=== PATIENT | female | born 1965 | race Caucasian/White ===

== ENCOUNTER 2024-09-09 01:08 | Emergency (ER) | payer OTHER ==
[2024-09-09] MEDS ORDERED: KETOROLAC 30 MG/ML INJ ONE (02:07)
[2024-09-09] MEDS ORDERED: ONDANSETRON 4 MG/2 ML VIAL ONE (02:07)
[2024-09-09] MEDS ORDERED: MORPHINE 4 MG/ML SYR ONE ×2 (02:08→04:58)
[2024-09-09] MEDS ORDERED: DICYCLOMINE HCL 20 MG/2 ML AMP IM ONE (02:08)
[2024-09-09] MEDS ORDERED: FAMOTIDINE 20 MG/2 ML VIAL IV ONE (02:08)
[2024-09-09] MEDS ORDERED: NA CHLORIDE 0.9% 1,000 ML ONE (02:09)
[2024-09-09 02:16] LABS: Absolute Eosinophils 0.1 K/uL (0-0.5); Absolute Lymphocytes (CBC) 1.3 K/uL (0.7-4.9); Absolute Monocytes 0.7 K/uL (0.1-1.3); Absolute Neutrophil 10.6 K/uL (1.8-8.0); Basophils % 0.2 % (0-1.3); Eosinophils % 0.8 % (0-4.4); Hematocrit 42.4 % (36.0-45.0); Hemoglobin 14.7 g/dL (12.0-15.0); Lymphocytes % 10.1 % (15.3-44.8); MCH 29.9 pg (27.0-35.0); MCHC 34.7 g/dL (32.0-36.0); MCV 86.3 fL (80-100); MPV 9.8 fL (7.6-11.3); Monocytes % 5.4 % (3.3-12.3); Neutrophils % 83.5 % (41.7-73.7); Nucleated Red Blood Cells % 0.1 % (0-0); Platelets 165 thou/uL (152-406); RBC Red Blood Cell Count 4.92 M/uL (3.86-4.86); Red Cell Distribution Width 12.5 % (12.1-15.2)
[2024-09-09 02:27] LABS: Albumin/Globulin Ratio 1.1 (1.1-1.8); Bilirubin Total 0.6 mg/dL (0.2-1.0); Globulin 3.7 g/dL (2.3-3.5); Protein, Total 7.7 g/dL (6.4-8.2)
[2024-09-09 02:28] LABS: Specific Gravity 1.024 (1.005-1.030); Sqamous Epithelial None Seen /HPF (None Seen); Urine Bacteria None Seen /HPF (<20); Urine Bilirubin NEGATIVE (Negative); Urine Blood Trace (Negative); Urine Clarity Clear (Clear); Urine Color Light-Yellow (Yellow); Urine Crystals Unidentified Few /HPF (None Seen); Urine Culture Reflex Order NOT NEEDED; Urine Glucose NEGATIVE (Negative); Urine Ketones NEGATIVE (Negative); Urine Microscopic Reflex YN ORDER UMIC; Urine Mucus Slight /HPF (None Seen); Urine Nitrite NEGATIVE (Negative); Urine Protein NEGATIVE (Negative); Urine RBC <5 /HPF (None Seen); Urine Urobilinogen Normal (Normal); Urine WBC <5 /HPF (<5); Urine WBC Clump Rare /HPF (None Seen)
[2024-09-09] MEDS ORDERED: NACHLORIDE 0.45% 1,000 ML IV ONE (04:09)
--- NOTE | 2024-09-09 04:23 | RAD REPORT ---
EXAM DESCRIPTION: Abdomen Pelvis W Contrast CLINICAL HISTORY: ABD PAIN COMPARISON: None Available. TECHNIQUE: CT of the abdomen and pelvis performed following the administration of IV contrast. No ora l contrast. This exam was performed according to our departmental dose-optimization program, which includes automated exposure control, adjustment of the mA and/or kV according to patient size and/or use of iterative reconstruction technique. FINDINGS: Prominent artifact from left hip prosthesis obscures detail of adjacent structures. Lung Bases: No basilar consolidation. Abdomen: Liver: The liver has normal contour and density. No suspicious mass. Gallbladder: Surgically absent. Mild biliary dilatation may be due to postcholecystectomy state. Spleen, Pancreas, and Adrenal Glands: The spleen, pancreas, and adrenal glands are unremarkable. Kidneys: No suspicious mass. No urinary tract calculi. No hydronephrosis. Vasculature: The aorta and IVC have normal caliber and position. The portal vein is patent. The pro ximal visceral and renal arteries are patent. Stomach: Postsurgical changes related to prior gastric bypass. Other: No free intraperitoneal air. No free fluid or lymphadenopathy. Pelvis: Bladder: Partially obscured due to artifact. Visualized portion appears under distended, but otherw ise unremarkable. Bowel: Diffuse fluid-filled small bowel loops throughout the abdomen and pelvis. There is some dila ariadna fluid-filled small bowel loops proximally in the left abdomen without focal transition point. Colon is also moderately distended and fluid-filled from the level of the cecum to the splenic flexur e.. Moderate stool in the colon distally. Appendix: Not visualized. Pelvis: Partially obscured due to artifact from left hip prosthesis. No definite suspicious mass iden tified. Bones: No destructive bone lesions identified. Postsurgical changes related to left hip arthroplasty. IMPRESSION: 1. Diffuse fluid-filled small bowel loops throughout the abdomen and pelvis. There is some dilated fluid-filled small bowel loops proximally in the left abdomen without focal transition point to suggest obstruction. Colon is also moderately distended and fluid-filled from the level of the cecum to the splenic flexure. Findings could be due to enterocolitis. 2. Postsurgical changes related to prior gastric bypass. 3. Mild biliary dilatation may be due to postcholecystectomy state. Electronically signed by: Debbie Ballesteros MD 09/09/2024 04:[address] [facility] Due to temporary technical issues with the PACS/[employer] reporting system, reports are being benny d by the in-house radiologist without review as a courtesy to ensure prompt reporting the interpreting radiologist is fully responsible for the content of the report. Transcribed Date/Time: 09/09/2024 4:23 AM
[2024-09-09] MEDS ORDERED: DICYCLOMINE HCL 10 MG CAP ONE (04:57)
[2024-09-09] MEDS ORDERED: METOCLOPRAMIDE 10 MG/2mL INJ ONE (04:57)
--- NOTE | 2024-09-09 05:07 | ER ---
Nurse's Notes [facility] Angi Name: Kristi Musa Age: 58 yrs Sex: Female : 1965 Arrival Date: 09/09/2024 Time: :08 Bed 16 Private MD: Diagnosis: Acute Enterocolitis , Acute Viral Gastroenteritis Presentation: 09/09 01:30 Chief complaint: Patient states: NAUSEA, ABDOMINAL PAIN, BACK PAIN, AND BLADDER ha1 PRESSURE. :30 Coronavirus screen: Client denies travel out of the [place] in the last 14 days. Ebola ha1 Screen: No symptoms or risks identified at this time. Initial Sepsis Screen: Does the patient meet any 2 criteria? No. Patient's initial sepsis screen is negative. Does the patient have a suspected source of infection? No. Patient's initial sepsis screen is negative. Risk Assessment: Do you want to hurt yourself or someone else? Patient reports no desire to harm self or others. Onset of symptoms was September 09, 2024. : Method Of Arrival: Ambulatory ha1 :30 Acuity: MAC 3 ha1 Triage Assessment: General: Appears uncomfortable, Behavior is calm, cooperative. Pain: Complains of pain ha1 in back and abdomen Pain does not radiate. Pain currently is 8 out of 10 on a pain scale. Quality of pain is described as crampy, pressure. Neuro: Level of Consciousness is awake, alert, obeys commands, Oriented to person, place, time, situation. Cardiovascular: Capillary refill < 3 seconds. Respiratory: Airway is patent Respiratory effort is even, unlabored, Respiratory pattern is regular, symmetrical. GI: Abdomen is round non-distended, Reports lower abdominal pain, upper abdominal pain, nausea, vomiting. Musculoskeletal: Circulation, motion, and sensation intact. Range of motion: intact in all extremities. Historical: - Allergies: No Known Allergies; ha1 - PMHx: ATRIAL FLUTTER; ha1 - PSHx: STOMACH BYPASS; ha1 - Immunization history:: Adult Immunizations up to date, Client reports having NOT received the Covid vaccine. Flu vaccine is not up to date. - Infectious Disease History:: Denies. - Social history:: Smoking status: Patient denies any tobacco usage or history of. - Family history:: not pertinent. Screenin:06 [facility] ED Fall Risk Assessment (Adult) History of falling in the last 3 months, ha1 including since admission No falls in past 3 months (0 pts) Confusion or Disorientation No (0 pts) Intoxicated or Sedated No (0 pts) Impaired Gait No (0 pts) Mobility Assist Device Used No (0 pt) Altered Elimination No (0 pt) Score/Fall Risk Level 0 - 2 = Low Risk Oriented to surroundings, Maintained a safe environment, Educated pt \T\ family on fall prevention, incl call for assistance when getting out of bed, Hourly rounding (assess needs \T\ fall precautionary measures) done. Abuse screen: Denies threats or abuse. Denies injuries from another. Nutritional screening: No deficits noted. Tuberculosis screening: No symptoms or risk factors identified. Assessment: 01:45 General: Appears in no apparent distress. uncomfortable, Behavior is calm, cooperative, dd2 appropriate for age. Pain: Complains of pain in abdomen and back Pain does not radiate. Pain currently is 10 out of 10 on a pain scale. Quality of pain is described as aching, crampy. Neuro: No deficits noted. Lafleur Agitation-Sedation Scale (RASS): 0 - Alert and Calm. Cardiovascular: No deficits noted. Patient's skin is warm and dry. Respiratory: No deficits noted. Airway is patent Respiratory effort is even, unlabored, Respiratory pattern is regular, symmetrical. GI: Abdomen is non-distended, Bowel sounds present X 4 quads. Abdomen is tender to palpation in right lower quadrant and left lower quadrant Reports lower abdominal pain, upper abdominal pain, nausea, vomiting. : No deficits noted. No signs and/or symptoms were reported regarding the genitourinary system. EENT: No deficits noted. No signs and/or symptoms were reported regarding the EENT system. Derm: No deficits noted. No signs and/or symptoms reported regarding the dermatologic system. Musculoskeletal: No deficits noted. No signs and/or symptoms reported regarding the musculoskeletal system. Circulation, motion, and sensation intact. Range of motion: intact in all extremities. 04:00 Reassessment: Patient appears in no apparent distress at this time. Patient is alert, ay oriented x 3, equal unlabored respirations, skin warm/dry/pink. Vital Signs: 01:30 Weight 71.21 kg; Height 5 ft. 5 in. ; ha1 01:30 BP 145 / 63; Pulse 72; Resp 17 S; Temp 97.9(T); Pulse Ox 100% on R/A; ha1 04:00 BP 122 / 71; Pulse 60; Resp 16; Pulse Ox 100% on R/A; ay 01:30 Body Mass Index 26.13 (71.21 kg, 165.1 cm) ha1 Hays Coma Score: 01:45 Eye Response: spontaneous(4). Motor Response: obeys commands(6). Verbal Response: dd2 oriented(5). Total: 15. 06:08 Eye Response: spontaneous(4). Motor Response: obeys commands(6). Verbal Response: sp4 oriented(5). Total: 15. ED Course: 01:12 Patient arrived in ED. gm2 01:18 Cruz Gann MD is Attending Physician. sp4 01:45 No provider procedures requiring assistance completed. Patient maintains SpO2 dd2 saturation greater than 95% on room air. 01:45 Patient has correct armband on for positive identification. Bed in low position. Call dd2 light in reach. Side rails up X2. Client placed on continuous cardiac and pulse oximetry monitoring. NIBP monitoring applied. Door closed. Noise minimized. Warm blanket given. Pillow given. Verbal reassurance given. 01:50 Inserted saline lock: 20 gauge in left Blood collected. Flushed with 10 mL NS. ha1 01:55 CBC with Diff Sent. ha1 01:55 CMP Sent. ha1 01:55 Lipase Sent. ha1 02:01 Triage completed. ha1 02:02 MONY WORKMAN, RN is Primary Nurse. dd2 02:49 CT Abd/Pelvis - IV Contrast Only In Process Unspecified. EDMS 05:20 IV discontinued, intact, bleeding controlled, No redness/swelling at site. Pressure ha1 dressing applied. Administered Medications: 02:24 Drug: Famotidine IVP 20 mg IVP once; dilute with 10 mL 0.9% NaCl; give over 2 minutes dd2 Route: IVP; Site: left antecubital; 04:18 Follow up: Response: No adverse reaction ay 02:24 Drug: TORadol - Ketorolac IVP 30 mg IVP once Route: IVP; Site: left antecubital; dd2 04:19 Follow up: Response: No adverse reaction ay 02:24 Drug: Ondansetron IVP 8 mg IVP once; over 2 minutes Route: IVP; Site: left antecubital; dd2 04:19 Follow up: Response: No adverse reaction ay 02:24 Drug: morphine IVP or IV 4 mg IVP once over 4 mins Route: IVP; Infused Over: 4 mins; dd2 Site: left antecubital; 04:19 Follow up: Response: No adverse reaction ay 02:24 Drug: NS 0.9% IV 1000 ml IV at 1 bolus Per protocol; to be given as a bolus over 60 dd2 minutes Route: IV; Rate: 1 bolus; Site: left antecubital; 05:23 Follow up: IV Status: Completed infusion ha1 02:24 Drug: Dicyclomine IM 20 mg IM once Route: IM; Site: left deltoid; dd2 04:18 Follow up: Response: No adverse reaction ay 05:23 Follow up: Response: No adverse reaction ha1 04:17 Drug: NS IV 0.45 % 1000 ml IV at 125 ml/hr continuous Route: IV; Rate: 125 ml/hr; Site: ay left antecubital; 05:22 Follow up: IV Status: Completed infusion ha1 05:07 Drug: morphine IVP or IV 4 mg IVP once over 4 mins Route: IVP; Infused Over: 4 mins; bm8 Site: left antecubital; 05:22 Follow up: Response: No adverse reaction ha1 05:07 Drug: metoCLOPramide IVP 10 mg IVP once; over 1 to 2 minutes Route: IVP; Site: left bm8 antecubital; 05:22 Follow up: Response: No adverse reaction ha1 05:07 Drug: Dicyclomine PO 20 mg PO once Route: PO; bm8 05:21 Follow up: Response: No adverse reaction ha1 Medication: 01:45 VIS not applicable for this client. dd2 Outcome: 05:07 Discharge ordered by MD. bennett 05:20 Discharged to home ambulatory, ha1 05:20 Condition: stable 05:20 Discharge instructions given to patient, Instructed on discharge instructions, follow up and referral plans. medication usage, Demonstrated understanding of instructions, follow-up care, medications, Prescriptions given X 2, 05:23 Patient left the ED. ha1 Signatures: Dispatcher [employer] EDMS Harish Reynoldsidy, RN RN ha1 Cruz Gann MD MD sp4 Radhika Wayne gm2 Yoan Major RN RN bm8 MONY WORKMAN RN RN dd2 William Ibarra, RN RN ay
--- NOTE | 2024-09-09 05:08 | EDPHYS ---
Physician Documentation [facility] Angi Name: Kristi Musa Age: 58 yrs Sex: Female : 1965 Arrival Date: 09/09/2024 Time: 01:08 Bed 16 Private MD: ED Physician Cruz Gann HPI: 09/09 01:18 This 58 yrs old Female presents to ER via Unassigned with complaints of sp4 Abdominal Pain, Abdominal Cramping, Low Back Pain, Nausea/Vomiting. 06:08 Patient presents with acute onset of vomiting and lower abdominal crampy pain. Patient sp4 denied diarrhea. Patient has history of , cholecystectomy, Michael-en-Y gastric bypass. . Historical: - Allergies: : No Known Allergies; ha1 - PMHx: :31 ATRIAL FLUTTER; ha1 - PSHx: :31 STOMACH BYPASS; ha1 - Immunization history:: Adult Immunizations up to date, Client reports having NOT received the Covid vaccine. Flu vaccine is not up to date. - Infectious Disease History:: Denies. - Social history:: Smoking status: Patient denies any tobacco usage or history of. - Family history:: not pertinent. ROS: 06:08 Constitutional: Negative for fever, chills, and weight loss, positive vomiting, sp4 positive lower abdominal pain 06:08 All other systems are negative, Exam: 06:08 Constitutional: This is a well developed, well nourished patient who is awake, alert, sp4 and in no acute distress. Head/Face: Normocephalic, atraumatic. Eyes: Pupils equal round and reactive to light, extra-ocular motions intact. Lids and lashes normal. Conjunctiva and sclera are not injected. Cornea within normal limits. Periorbital areas with no swelling, redness, or edema. ENT: Nares patent. No nasal discharge, no septal abnormalities noted. Tympanic membranes are normal and external auditory canals are clear. Oropharynx with no redness, swelling, or masses, exudates, or evidence of obstruction, uvula midline. Mucous membranes moist. Neck: Trachea midline, no thyromegaly or masses palpated, and no cervical lymphadenopathy. Supple, full range of motion without nuchal rigidity, or vertebral point tenderness. Chest/axilla: Normal chest wall appearance and motion. Nontender with no deformity. No lesions are appreciated. Cardiovascular: Regular rate and rhythm with a normal S1 and S2. No gallops, murmurs, or rubs. Normal PMI, no JVD. No pulse deficits. Respiratory: Lungs have equal breath sounds bilaterally, clear to auscultation and percussion. No rales, rhonchi or wheezes noted. No increased work of breathing, no retractions or nasal flaring. Abdomen/GI: Soft, with normal bowel sounds. No distension or tympany. No guarding or rebound. No evidence of tenderness throughout. Back: No spinal tenderness. No costovertebral tenderness. Skin: Warm, dry with normal turgor. Normal color with no rashes, no lesions, and no evidence of cellulitis. MS/ Extremity: Pulses equal, no cyanosis. Neurovascular intact. Full, normal range of motion. Neuro: Awake and alert, GCS 15, oriented to person, place, time, and situation. Cranial nerves II-XII grossly intact. Motor strength 5/5 in all extremities. Sensory grossly intact. Psych: Awake, alert, with orientation to person, place and time. Behavior, mood, and affect are within normal limits Vital Signs: 01:30 Weight 71.21 kg; Height 5 ft. 5 in. ; ha1 01:30 BP 145 / 63; Pulse 72; Resp 17 S; Temp 97.9(T); Pulse Ox 100% on R/A; ha1 04:00 BP 122 / 71; Pulse 60; Resp 16; Pulse Ox 100% on R/A; ay 01:30 Body Mass Index 26.13 (71.21 kg, 165.1 cm) ha1 Brynn Coma Score: 01:45 Eye Response: spontaneous(4). Motor Response: obeys commands(6). Verbal Response: dd2 oriented(5). Total: 15. 06:08 Eye Response: spontaneous(4). Motor Response: obeys commands(6). Verbal Response: sp4 oriented(5). Total: 15. MDM: 01:43 Medical Screening Exam initiated sp4 06:08 Differential diagnosis: Assessment consistent with acute gastroenteritis and sp4 enterocolitis. Advise clear liquid diet for 2 days. Symptomatic medications as well. Data reviewed: vital signs, nurses notes, lab test result(s), radiologic studies, CT scan. Consideration of Admission/Observation Escalation of care including admission/observation considered. ED course: Pain has improved. Patient stable for discharge home.. 09/09 01:44 Order name: CBC with Diff; Complete Time: 04:53 sp4 09/09 01:44 Order name: CMP; Complete Time: 04:53 sp4 09/09 01:44 Order name: Lipase; Complete Time: 04:53 sp4 09/09 01:44 Order name: Urinalysis w/ reflexes; Complete Time: 04:53 sp4 09/09 01:44 Order name: CT Abd/Pelvis - IV Contrast Only sp4 09/09 01:44 Order name: IV Saline Lock; Complete Time: 01:55 sp4 09/09 01:44 Order name: Labs collected and sent; Complete Time: 01:55 sp4 09/09 01:46 Order name: NPO; Complete Time: 02:02 sp4 Administered Medications: 02:24 Drug: Famotidine IVP 20 mg IVP once; dilute with 10 mL 0.9% NaCl; give over 2 minutes dd2 Route: IVP; Site: left antecubital; 04:18 Follow up: Response: No adverse reaction ay 02:24 Drug: TORadol - Ketorolac IVP 30 mg IVP once Route: IVP; Site: left antecubital; dd2 04:19 Follow up: Response: No adverse reaction ay 02:24 Drug: Ondansetron IVP 8 mg IVP once; over 2 minutes Route: IVP; Site: left antecubital; dd2 04:19 Follow up: Response: No adverse reaction ay 02:24 Drug: morphine IVP or IV 4 mg IVP once over 4 mins Route: IVP; Infused Over: 4 mins; dd2 Site: left antecubital; 04:19 Follow up: Response: No adverse reaction ay 02:24 Drug: NS 0.9% IV 1000 ml IV at 1 bolus Per protocol; to be given as a bolus over 60 dd2 minutes Route: IV; Rate: 1 bolus; Site: left antecubital; 05:23 Follow up: IV Status: Completed infusion ha1 02:24 Drug: Dicyclomine IM 20 mg IM once Route: IM; Site: left deltoid; dd2 04:18 Follow up: Response: No adverse reaction ay 05:23 Follow up: Response: No adverse reaction ha1 04:17 Drug: NS IV 0.45 % 1000 ml IV at 125 ml/hr continuous Route: IV; Rate: 125 ml/hr; Site: ay left antecubital; 05:22 Follow up: IV Status: Completed infusion ha1 05:07 Drug: morphine IVP or IV 4 mg IVP once over 4 mins Route: IVP; Infused Over: 4 mins; bm8 Site: left antecubital; 05:22 Follow up: Response: No adverse reaction ha1 05:07 Drug: metoCLOPramide IVP 10 mg IVP once; over 1 to 2 minutes Route: IVP; Site: left bm8 antecubital; 05:22 Follow up: Response: No adverse reaction ha1 05:07 Drug: Dicyclomine PO 20 mg PO once Route: PO; bm8 05:21 Follow up: Response: No adverse reaction ha1 Disposition: 06:10 Chart complete. sp4 Disposition Summary: 09/09/24 05:07 Discharge Ordered Notes: Location: Home sp4 Problem: new sp4 Symptoms: have improved sp4 Condition: Stable sp4 Diagnosis - Acute Enterocolitis , Acute Viral Gastroenteritis sp4 Followup: sp4 - With: Private Physician - When: 7 - 10 days - Reason: Recheck today's complaints Discharge Instructions: - Discharge Summary Sheet sp4 - Viral Gastroenteritis, Adult, [id number] sp4 Forms: - Patient Portal Instructions sp4 Prescriptions: - dicyclomine 20 mg Oral tablet - take 1 tablet ORAL route every 6 hours PRN abdominal pain; 40 tablet; Refills: sp4 0, Product Selection Permitted - ondansetron 8 mg Oral Tablet,disintegrating - take 1 tablet ORAL route every 8 hours PRN nausea; 30 tablet; Refills: 0, sp4 Product Selection Permitted Signatures: Dispatcher [employer] EDMS Milana Reynolds RN RN ha1 Cruz Gann MD MD sp4 Yoan Major RN RN bm8 MONY WORKMAN RN RN dd2 William Ibarra RN RN ay Corrections: (The following items were deleted from the chart) 01:44 01:44 CBC+H.LAB.BRZ ordered. EDMS EDMS 01:44 01:44 COMPREHENSIVE METABOLIC PANEL+C.LAB.BRZ ordered. EDMS EDMS 01:44 01:44 LIPASE+C.LAB.BRZ ordered. EDMS EDMS 01:44 01:44 Urinalysis+U.LAB.BRZ ordered. EDMS EDMS
[2024-09-09 05:28] VITALS: TEMP 97.9; O2SAT 100
[2024-09-09 05:29] VITALS: BP 122/71
== END 2024-09-09 05:23 | disposition home or self-care (01) ==
LOC: ER 01:08
DX: K52.9 Noninfective gastroenteritis and colitis, unspecified (principal); A08.4 Viral intestinal infection, unspecified; Z98.84 Bariatric surgery status
CPT/HCPCS: 96361; 85025; 81001; 36415; 83690; 80053; 74177; 96375; 96372; 96374; 99284; Q9967; J2765; J0500; J2405; J7030